=== PATIENT | male | born 1970 | race Caucasian/White ===

== ENCOUNTER 2021-04-22 05:35 | Outpatient (CLI) | payer BC ==
[~2021-04-22] VITALS: Ht 195.6 cm; Wt 104.5 kg
== END 2021-04-22 10:01 | disposition home or self-care (01) ==
LOC: PREOP 05:35
PROVIDERS: ATTEND Internal Medicine
DX: Z01.818 Encounter for other preprocedural examination (principal)

== ENCOUNTER 2021-05-14 09:06 | Day surgery (SDC) | payer BC ==
--- NOTE | 2021-04-13 06:26 | HISTORY AND PHYSICAL ---
DATE OF SERVICE: COLONOSCOPY HISTORY AND PHYSICAL HISTORY OF PRESENT ILLNESS: The patient is a 50-year-old white male, who was seen in the office for yearly wellness evaluation. He has a history of hypertension, obstructive sleep apnea, on CPAP therapy. He is being set up for screening colonoscopy. He is deemed to be of average risk as he is not aware of any family history for colon cancer or GI tract malignancy. He has had no bright red blood per rectum, abdominal pain or change in bowel habit. After discussing his blood work, which revealed that his cholesterol was higher than last year. He notes that he has not been nearly as active. He states he has been feeling well otherwise. No difficulty with the job requirements as [employer] in the [employer]. He has received his first COVID vaccination and had no difficulty. PAST SURGICAL HISTORY: Noncontributory. SOCIAL HISTORY: He works for the [email or web address]. No past smoking history and rare small volume alcohol intake. FAMILY HISTORY: Father of complications of heart disease in his early 70s for stent placement at the age of 58. Has one brother living and well, 52 years of age. Mother of a rare blood disorder in her 30s. PHYSICAL EXAMINATION: GENERAL: Reveals a white male, appeared to be in no acute distress. VITAL SIGNS: Weight 232 pounds, but he was weighed with handcuffs gun which she reports weighs probably about 5 pounds, blood pressure 120/70. HEENT: Unremarkable. CHEST: Clear. CARDIOVASCULAR: Regular rate and rhythm without murmur, S3 or S4. ABDOMEN: Soft, supple without mass, organomegaly or tenderness. EXTREMITIES: Reveal no cyanosis, clubbing or edema. SKIN: Evaluation reveals no suspicious nevi. Ear canals clear with normal TMs. ASSESSMENT AND PLAN: Stable wellness examination except with less physical activity. Cholesterol and triglyceride levels are moderately elevated. Discussed the importance of getting back to regular physical activity, which he plans on doing. Remainder of his chemistry panel was normal and PSA remains low at 0.51. We will see him back in 6 months with a repeat CMP and Lipid panel. The patient is being set up for his first screening colonoscopy, deemed to be of average risk. Prep instructions with the Suprep kit were given and questions were answered. Job ID: [id number] DocumentID: [id number] Dictated Date: 03/31/2021 16:01:59 Assurance Officer Date: 03/31/2021 16:19:37 Dictated By: ALESHA CACERES MD MTDD
[~2021-05-14] VITALS: Ht 195.6 cm; Wt 104.5 kg
[2021-05-14] MEDS ORDERED: LACTATED RINGERS 1,000 ML IV STA (09:07)
[2021-05-14] MEDS ORDERED: LACTATED RINGERS 1,000 ML IV ONE (09:12)
[2021-05-14] MEDS ORDERED: LIDOCAINE JELLY 2% 6 ML SYRINGE MM PRN (09:15)
[2021-05-14 09:20] VITALS: BP 125/82
--- NOTE | 2021-05-14 09:31 | Pre-Op Note & Conscious Sedat ---
Pre-Operative Progress Note H&P Reviewed The H&P was reviewed, patient examined and no changes noted. Date H&P Reviewed: May 14, 2021 Time H&P Reviewed: 09:31 Conscious Sedation Pre-Proced ASA Score 2 For ASA 3 and 4: Consider anesthesia and medical clearance. Also, for patients with a history of failed moderate sedation consider anesthesia. Airway Lungs Heart ASA score ASA 1: a normal healthy patient ASA 2: a patient with a mild systemic disease (mid diabetes, controlled hypertension, obesity ASA 3: a patient with a severe systemic disease that limits activity (angina, COPD, prior Myocardial infarction) ASA 4: a patient with an incapacitating disease that is a constant threat to life (CHF, renal failure) ASA 5: a moribund patient not expected to survive 24 hrs. (ruptured aneurysm) ASA 6: a declared brain- patient whose organs are being harvested. For emergent operations, add the letter E after the classification Mallampati Classification Grade 2 Sedation Plan Analgesia, Amnesia, Plan communicated to team members, Discussed options with patient/fam, Discussed risks with patient/fam The patient is an appropriate candidate to undergo the planned procedure, sedation, and anesthesia. The patient immediately re-assessed prior to indication. ALESHA CACERES MD May 14, 2021 09:31
[2021-05-14] MEDS ORDERED: MIDAZOLAM 2 MG/2 ML (VERSED) VIAL ONE (09:57)
[2021-05-14] MEDS ORDERED: PROPOFOL INJECTION 50 ML IV ONE (09:58)
[2021-05-14] MEDS ORDERED: LIDOCAINE PF 2% 5 ML (XYLOCAINE) VIAL ONE (10:19)
[2021-05-14 10:38] VITALS: BP 114/70
[2021-05-14 10:43] VITALS: BP 123/75
[2021-05-14 10:45] VITALS: BP 123/75
--- NOTE | 2021-05-14 11:06 | Anesthesia-General Post-Op ---
MAC Patient Condition Mental Status/LOC: Same as Preop Cardiovascular: Satisfactory Nausea/Vomiting: Absent Respiratory: Satisfactory Pain: Controlled Complications: Absent Post Op Complications Complications None Follow Up Care/Instructions Patient Instructions None needed. Anesthesiology Discharge Order Discharge Order Patient is doing well, no complaints, stable vital signs, no apparent adverse anesthesia problems. No complications reported per nursing. ALEXANDRA LAGUERRE CRNA May 14, 2021 11:06
[2021-05-14 11:15] VITALS: BP 111/73
[2021-05-14 11:30] VITALS: BP 111/73
--- NOTE | 2021-05-14 15:52 | OPERATIVE REPORT ---
DATE OF SERVICE: EGD SUMMARY INDICATION FOR THE PROCEDURE: Screening colonoscopy. DESCRIPTION OF PROCEDURE: The patient was placed in the left lateral decubitus position. Prior to undergoing colonoscopy, digital rectal evaluation was performed. Anal sphincter tone was normal and the perianal reflexes intact. Prostate was normal in size and anodular on digital inspection. No abnormalities were noted on digital inspection of anal canal or distal rectal vault. The colonoscope was then inserted into the rectum and under direct visualization advanced to cecum. The cecum was identified by identification of the ileocecal valve and cecal strap. Photographic documentation was obtained. Careful inspection was made as the colonoscope was withdrawn. Quality of prep was good. FINDINGS: There was no evidence for internal or external hemorrhoids and the rectum, sigmoid colon, descending colon, splenic flexure and transverse colon were unremarkable. There was a sessile 1 x 2 cm polyp with no mucosal ulceration or inflammatory change noted to gross inspection. Photograph was obtained. It was then biopsied in 2 locations and cauterized with submission for histopathology. The ascending colon was unremarkable. A 2 to 3 mm sessile polyp was noted in the cecum. It was biopsied and ablated with no blood loss. ASSESSMENT: Two sessile polyps were removed, the larger more concerning from the hepatic flexure measuring 1 x 2 cm in size. There was no subsequent blood loss with either polyp, the second one was 2 to 3 mm in size and noted in the cecum. This was an otherwise normal colonoscopy to the cecum. We will likely be advocating repeat surveillance colonoscopy in one year, but we will await histopathology reports. Job ID: [id number] DocumentID: [id number] Dictated Date: 05/14/2021 11:06:52 Securities Trader Date: 05/14/2021 15:51:24 Dictated By: ALESHA CACERES MD [facility]
== END 2021-05-14 11:33 | disposition home or self-care (01) ==
LOC: ENDO 09:06
PROVIDERS: ATTEND Internal Medicine
DX: Z12.11 Encounter for screening for malignant neoplasm of colon (principal); D12.3 Benign neoplasm of transverse colon; D12.2 Benign neoplasm of ascending colon; Z82.49 Family history of ischemic heart disease and other diseases of the circulatory system; G47.33 Obstructive sleep apnea (adult) (pediatric); Z99.89 Dependence on other enabling machines and devices

== ENCOUNTER → 2021-07-08 | Outpatient (CLI) | payer BC ==
[~2021-07-08] VITALS: Ht 195.6 cm; Wt 103.5 kg
[~2021-07-08] MED LIST: ACETAMINOPHEN 500 MG TAB (TYLENOL) PO PRN; CASIRIVIMAB/IMDEVIMAB 1,200 MG in NS (IVPB) 250 ML IV ONE; EPINEPHrine INJECTION 1 MG/ML AMP IM PRN; ONDANSETRON 4 MG/2 ML (SDV) Z0FRAN IV PRN; diphenhydrAMINE 50 MG/ML INJ (BENADRYL) IV PRN
[2021-07-08 09:11] VITALS: BP 116/64
[2021-07-08 10:37] VITALS: BP 101/62
== END ==
LOC: INFUSION 09:07
PROVIDERS: ATTEND Nurse Practitioner Family
DX: Z23 Encounter for immunization (principal); U07.1 COVID-19

== ENCOUNTER 2022-05-04 05:38 | Outpatient (CLI) | payer BC ==
[~2022-05-04] VITALS: Ht 195.6 cm; Wt 103.4 kg
[2022-05-04] MEDS ORDERED: ATOR10TA PO (08:48)
== END 2022-05-04 08:50 | disposition home or self-care (01) ==
LOC: PREOP 05:38
PROVIDERS: ATTEND Internal Medicine
DX: Z01.818 Encounter for other preprocedural examination (principal)

== ENCOUNTER 2022-05-13 07:16 | Day surgery (SDC) | payer BC ==
--- NOTE | 2022-05-03 19:39 | HISTORY AND PHYSICAL ---
DATE OF SERVICE: COLONOSCOPY HISTORY AND PHYSICAL HISTORY OF PRESENT ILLNESS: The patient is a 51-year-old white male seen for followup of hyperlipidemia. One year ago, he had undergone colonoscopy at which time, he had a 1 x 2 cm serrated adenoma removed via cautery from the hepatic flexure. He also had a tubular adenoma removed from the cecum. For this reason, he is undergoing surveillance colonoscopy. He reports that he has been feeling well. He has a history of obstructive sleep apnea. He has been compliant with CPAP therapy, doing well with this. He voiced no complaints. He has been a little more active and his weight was down 4.6 pounds from 6 months ago. PHYSICAL EXAMINATION: GENERAL: Reveals a white male, appeared to be in no acute distress. VITAL SIGNS: Blood pressure 112/70, heart rate 70 and regular. CHEST: Clear. CARDIOVASCULAR: Reveals regular rate and rhythm without murmur, S3 or S4. EXTREMITIES: Reveal no cyanosis, clubbing or edema. SKIN: Reveals no suspicious nevi. REVIEW OF SYSTEMS: The patient has had no change in bowel habit, bright red blood per rectum, melena or abdominal pain. LABORATORY DATA: Blood tests were reviewed with the patient. Despite weight loss, his cholesterol was little change with an LDL of 160, HDL of 55, triglyceride level 145 and total cholesterol of 244. The remainder of his chemistry panel except for his blood sugar was normal, fasting at 101. This is, however, an improvement from 111 six months ago. ASSESSMENT AND PLAN: Hyperlipidemia. There is a family history for coronary artery disease. His father required stent placement in his early 60s. Discussed that he had a 7.5% to 10% 10-year risk for vascular event and statin therapy was recommended. After discussion of side effects and expectations with medication and goals, we will initiate Rosuvastatin 10 mg daily and have him follow up in 6 months with repeat chemistry and lipid panel as well as screening PSA and yearly wellness evaluation. The patient is also being set up for colonoscopy later this month due to history of colon polyps. See HPI. Prep instructions were given, and questions were answered. Job ID: [id number] DocumentID: [id number] Dictated Date: 04/06/2022 09:52:01 Knotter Hand Date: 04/06/2022 10:20:45 Dictated By: ALESHA CACERES MD
[~2022-05-13] VITALS: Ht 195.6 cm; Wt 103.4 kg
[~2022-05-13 07:16] MED LIST changes: -ACETAMINOPHEN 500 MG TAB (TYLENOL) PO PRN; +ATOR10TA PO; -CASIRIVIMAB/IMDEVIMAB 1,200 MG in NS (IVPB) 250 ML IV ONE; -EPINEPHrine INJECTION 1 MG/ML AMP IM PRN; -ONDANSETRON 4 MG/2 ML (SDV) Z0FRAN IV PRN; -diphenhydrAMINE 50 MG/ML INJ (BENADRYL) IV PRN
[2022-05-13] MEDS ORDERED: LACTATED RINGERS 1,000 ML IV STA (07:17)
[2022-05-13 07:29] VITALS: BP 129/78
[2022-05-13] MEDS ORDERED: MIDAZOLAM 2 MG/2 ML (VERSED) VIAL ONE (07:43)
[2022-05-13] MEDS ORDERED: PROPOFOL INJECTION 50 ML IV ONE (07:44)
--- NOTE | 2022-05-13 08:00 | Pre-Op Note & Conscious Sedat ---
Pre-Operative Progress Note H&P Reviewed The H&P was reviewed, patient examined and no changes noted. Date H&P Reviewed: May 13, 2022 Time H&P Reviewed: 08:00 Conscious Sedation Pre-Proced ASA Score 2 For ASA 3 and 4: Consider anesthesia and medical clearance. Also, for patients with a history of failed moderate sedation consider anesthesia. Airway Lungs Heart ASA score ASA 1: a normal healthy patient ASA 2: a patient with a mild systemic disease (mid diabetes, controlled hypertension, obesity ASA 3: a patient with a severe systemic disease that limits activity (angina, COPD, prior Myocardial infarction) ASA 4: a patient with an incapacitating disease that is a constant threat to life (CHF, renal failure) ASA 5: a moribund patient not expected to survive 24 hrs. (ruptured aneurysm) ASA 6: a declared brain- patient whose organs are being harvested. For emergent operations, add the letter E after the classification Mallampati Classification Grade 2 Sedation Plan Analgesia, Amnesia, Plan communicated to team members, Discussed options with patient/fam, Discussed risks with patient/fam The patient is an appropriate candidate to undergo the planned procedure, sedation, and anesthesia. The patient immediately re-assessed prior to indication. ALESHA CACERES MD May 13, 2022 08:00
[2022-05-13 08:45] VITALS: BP 117/61
[2022-05-13 08:50] VITALS: BP 118/71
[2022-05-13 09:15] VITALS: BP 129/73
--- NOTE | 2022-05-13 10:34 | Anesthesia-General Post-Op ---
MAC Patient Condition Mental Status/LOC: Same as Preop Cardiovascular: Satisfactory Nausea/Vomiting: Absent Respiratory: Satisfactory Pain: Controlled Complications: Absent Post Op Complications Complications None Follow Up Care/Instructions Patient Instructions None needed. Anesthesiology Discharge Order Discharge Order Patient is doing well, no complaints, stable vital signs, no apparent adverse anesthesia problems. No complications reported per nursing. YESICA HAMILTON CRNA May 13, 2022 10:34
--- NOTE | 2022-05-13 15:48 | OPERATIVE REPORT ---
DATE OF SERVICE: COLONOSCOPY SUMMARY INDICATION FOR THE PROCEDURE: Surveillance, history of colon polyps. DESCRIPTION OF PROCEDURE: The patient was placed in the left lateral decubitus position. Prior to undergoing colonoscopy, digital rectal evaluation was performed. Anal sphincter tone was normal and the perianal reflexes intact. Prostate is unremarkable to digital inspection. No abnormalities were noted on digital inspection of anal canal or distal rectal vault. The colonoscope was then inserted into the rectum and under direct visualization advanced to cecum. The cecum was identified by identification of the ileocecal valve and cecal strap. Photographic documentation was obtained. Quality of prep was fair. A small portion of the cecum was not visualized as well as ascending colon due to retained stool. Elsewhere, visualization was good. FINDINGS: There was no evidence for internal or external hemorrhoids and the rectum was unremarkable. Present in the mid sigmoid colon was a diminutive 3 mm sessile polyp was photographed and biopsied and ablated with no subsequent blood loss. No other sigmoid colonic abnormalities were appreciated. The descending colon, splenic flexure, transverse colon and hepatic flexure, ascending colon, and cecum were unremarkable. There is no evidence for recurrence of previous serrated adenoma at the hepatic flexure. ASSESSMENT: One diminutive polyp was removed from the mid sigmoid colon with an otherwise unremarkable colonoscopy to the cecum. As long as there are no surprise on histopathology report, would advocate repeat surveillance colonoscopy in 5 years. Job ID: [id number] DocumentID: [id number] Dictated Date: 05/13/2022 08:44:55 Complaint Evaluation Officer Date: 05/13/2022 15:47:38 Dictated By: ALESHA CACERES MD
== END 2022-05-13 09:25 | disposition home or self-care (01) ==
LOC: ENDO 07:16
PROVIDERS: ATTEND Internal Medicine
DX: Z12.11 Encounter for screening for malignant neoplasm of colon (principal); K63.5 Polyp of colon; E78.5 Hyperlipidemia, unspecified; G47.33 Obstructive sleep apnea (adult) (pediatric); Z82.49 Family history of ischemic heart disease and other diseases of the circulatory system; Z79.899 Other long term (current) drug therapy
CPT/HCPCS: 88305

== ENCOUNTER → 2022-06-09 | Outpatient (CLI) | payer BC ==
[~2022-06-09] VITALS: Ht 195.6 cm; Wt 104.5 kg
[~2022-06-09] MED LIST changes: +ROSU10TA28 PO
== END ==
LOC: PREOP 05:38
PROVIDERS: ATTEND Surgery
DX: Z01.818 Encounter for other preprocedural examination (principal); M67.40 Ganglion, unspecified site

== ENCOUNTER 2022-06-16 08:07 | Day surgery (SDC) | payer BC ==
--- NOTE | 2022-06-09 09:23 | HISTORY AND PHYSICAL ---
DATE OF SERVICE: ATTENDING PRIMARY CARE PHYSICIAN: Dr. Noah Moran. HISTORY OF PRESENT ILLNESS: The patient is a 51-year-old male with a symptomatic lesion of the dorsal surface of the left wrist, which has been around for 10 years; however, this has grown larger in size and become painful. Since this has happened, this has interfered with his ability to dorsiflex the wrist and impedes his ability to exercise. Upon examination, there is a cystic-type lesion. Upon plantar flexion of the wrist, which appears to be consistent with a symptomatic ganglion cyst. PAST MEDICAL HISTORY: Hypercholesterolemia. PAST SURGICAL HISTORY: Right foot bunionectomy 2003. ALLERGIES: NO KNOWN DRUG ALLERGIES. MEDICATIONS: Antihypercholesterolemic. SOCIAL HISTORY: Negative smoke. Rare alcohol. FAMILY HISTORY: Father, hypertension, diabetes. VITAL SIGNS: Blood pressure 142/84, current weight 228.2 pounds at 6 feet 5 inches. REVIEW OF SYSTEMS: Well-nourished male in no acute distress. He is not experiencing any shortness of breath or difficulty breathing. No chest pain, palpitations, diaphoresis. No nausea or vomiting. No diarrhea or constipation. No fever or chills. No recent inadvertent weight loss. All other review of systems negative. PHYSICAL EXAMINATION: CHEST: Clear. Good breath sounds bilaterally. HEART: Regular, no murmurs. EXTREMITIES: No lower extremity edema, negative Homans sign. HEENT: No scleral icterus. NECK: No cervical lymphadenopathy. ABDOMEN: Soft, nontender, nondistended. SKIN: Along the dorsal aspect of the left wrist upon plantar flexion is a firm, well-circumscribed lesion approximately 1.5 cm in size consistent with benign. He has symptomatic ganglion cyst. ASSESSMENT AND PLAN: A 51-year-old male with a symptomatic left dorsal ganglion cyst. The natural history of these type of cysts were explained to the patient as well as the risk for increase in size and pain and he is understanding of this and would like to proceed with excision of the ganglion cyst, which we will schedule. Job ID: [id number] DocumentID: [id number] Dictated Date: 05/31/2022 15:56:03 Certified Diabetes Educator Date: 05/31/2022 16:36:41 Dictated By: STEVIE JEAN BAPTISTE MD
[~2022-06-16] VITALS: Ht 195.6 cm; Wt 104.5 kg
[2022-06-16] MEDS ORDERED: LACTATED RINGERS 1,000 ML IV PRN (09:00)
[2022-06-16] MEDS ORDERED: ceFAZolin 2 GM IV Premixed 50 ML IV ONE (09:00)
[2022-06-16 09:20] VITALS: BP 130/79
--- NOTE | 2022-06-16 10:01 | Progress Note-Pre Operative ---
Pre-Operative Progress Note Date H&P Reviewed: Jun 16, 2022 Time H&P Reviewed: 09:55 History & Physical: H&P Reviewed, No changes noted Pre-Operative Diagnosis: Left ganglion cyst JAKE ANDERSON SEISMIC COMPUTER Jun 16, 2022 10:01
[2022-06-16] MEDS ORDERED: HYDR-3817 PO (10:02)
--- NOTE | 2022-06-16 10:02 | Discharge Inst-Surgical ---
D/C Lap Instructions-KIDO Reconcile Patient Problems Problems Reviewed?: Yes New, Converted, or Re-Newed RX: RX on Chart Follow Up Appt in 2 weeks Activity as tolerated No driving for 24 hours No driving while on pain medications Incentive Spirometry use every 2 hours while awake Regular Diet Symptoms to Report: Fever over 101 degree F, Nausea/Vomiting Infection Signs and Symptoms to report: Increased redness, Foul odor of wound, Increased drainage Bathing instructions: May shower Operative Area Clean/Dry; Keep incision clean/dry If any problems/questions: Contact your physician or go to Emergency Room JAKE ANDERSON APRN Jun 16, 2022 10:02
[2022-06-16] MEDS ORDERED: ACETAMINOPHEN 325 MG TABLET PO PRN (10:15)
[2022-06-16] MEDS ORDERED: morphine INJ 10 MG/ML 1ML (SYR OR VIAL) IVP PRN (10:15)
[2022-06-16] MEDS ORDERED: ONDANSETRON 4 MG/2 ML (SDV) Z0FRAN IVP PRN (10:15)
[2022-06-16] MEDS ORDERED: HYDROcodone/APAP 5 MG/325 MG (LORTAB) TAB PO ONE (10:15)
[2022-06-16] MEDS ORDERED: LIDOCAINE/EPI 2% 1:200,00 (XYLOCAINE) 20 ML VIAL ONE (10:30)
[2022-06-16] MEDS ORDERED: MIDAZOLAM 2 MG/2 ML (VERSED) VIAL ONE (10:44)
[2022-06-16] MEDS ORDERED: PROPOFOL INJECTION 50 ML IV ONE (10:44)
[2022-06-16 12:04] VITALS: BP 142/76
--- NOTE | 2022-06-16 12:09 | Anesthesia-General Post-Op ---
MAC Patient Condition Mental Status/LOC: Same as Preop Cardiovascular: Satisfactory Nausea/Vomiting: Absent Respiratory: Satisfactory Pain: Controlled Complications: Absent Post Op Complications Complications None Follow Up Care/Instructions Patient Instructions None needed. Anesthesiology Discharge Order Discharge Order Patient is doing well, no complaints, stable vital signs, no apparent adverse anesthesia problems. No complications reported per nursing. CAT CARRINGTON CRNA Jun 16, 2022 12:09
[2022-06-16 12:10] VITALS: BP 152/63
[2022-06-16 12:20] VITALS: BP 161/63
[2022-06-16 12:25] VITALS: BP_SYST 149; BP_SYST 161; BP_DIAS 63; BP_DIAS 81
--- NOTE | 2022-06-16 12:39 | Progress Note-Post Operative ---
Post-Operative Progess Note Surgeon (s)/Pathology Collector (s) Surgeon STEVIE JEAN BAPTISTE MD Pathology Collector: alberto sharma CASH OFFICE WORKER Pre-Operative Diagnosis Left ganglion cyst Post-Operative Diagnosis same Procedure & Operative Findings Date of Procedure 06/16/22 Procedure Performed/Findings excision left wrist ganglion cyst Anesthesia Type mac with local Estimated Blood Loss Estimated blood loss (mL): minimal Specimens/Packing Specimens Removed ganglion cyst STEVIE JEAN BAPTISTE MD Jun 16, 2022 12:39
[2022-06-16 12:45] VITALS: BP 148/82
--- NOTE | 2022-06-16 21:13 | OPERATIVE REPORT ---
DATE OF SERVICE: 06/16/2022 ATTENDING PRIMARY CARE PHYSICIAN: Noah Moran MD PREOPERATIVE DIAGNOSIS: Symptomatic left dorsal wrist ganglion cyst. POSTOPERATIVE DIAGNOSIS: Symptomatic left dorsal wrist ganglion cyst. PROCEDURE: Excision of left dorsal ganglion cyst. SURGEON: Debbie Jean Baptiste MD. INDUSTRIAL SPRAYPAINTER: Cliff Gray APRN. ANESTHESIA: Monitored anesthesia care with local. ESTIMATED BLOOD LOSS: Minimal. FINDINGS: Ganglion cyst, left dorsal wrist at the radial head and carpal bone junction. DISPOSITION: The patient tolerated the procedure well. INDICATIONS: The patient is a 51-year-old male who has had a symptomatic lesion of the dorsal surface of the left wrist for about 10 years; however, this has grown significantly larger in size at times, especially upon exertion. Since this has happened this has interfered with his ability to dorsiflex the wrist and sometimes impeding his ability to exercise. On examination, there is a cystic- type lesion and upon plantar flexion of the wrist, there was a symptomatic ganglion cyst. DESCRIPTION OF PROCEDURE: The patient was brought to the operating room, laid supine on the table. After adequate IV pain and sedative medications and monitored anesthesia care, the left hand and the extremity was prepped and draped in standard surgical fashion and sterile tourniquet was placed. The area was then marked off along the glabellar lines. This area was then anesthetized using 0.5% Marcaine with epinephrine with visualization of good hemostasis. A horizontal skin incision was then made using a 15 blade. The subcutaneous tissue was then dissected using electrocautery. The superficial extensor tendons were identified and bluntly dissected and retracted laterally visualizing the cyst, which was then dissected using tenotomy scissors and electrocautery with visualization of good hemostasis. A 0 chromic loop suture was then placed at the base of the cyst and tightened. The cyst was then excised under direct visualization using electrocautery. The tourniquet was then released with visualization of good hemostasis. The fascia was then reapproximated using 3-0 Vicryl interrupted sutures and the skin was closed using 4-0 Monocryl running subcuticular suture. Wound was then cleaned and covered with Dermabond. Wound was then cleaned and covered with Lucy wrap, followed by 2-inch Scott wrap followed by a wrist splint. The patient tolerated the procedure well. We will start IV and oral pain medication once he is tolerating clears, has good pain control, he may be discharged home and he will be instructed to keep the area clean and dry and do all of his activities of normal living; however, to do no heavy lifting or exertion for the next two weeks. Job ID: [id number] DocumentID: [id number] Dictated Date: 06/16/2022 11:58:17 Flight Control Manager Date: 06/16/2022 21:13:19 Dictated By: DEBBIE JEAN BAPTISTE MD MTDD
== END 2022-06-16 12:45 ==
LOC: SDC 08:07
PROVIDERS: ATTEND Surgery
DX: M67.432 Ganglion, left wrist (principal)
CPT/HCPCS: 87081; 88304

== ENCOUNTER 2023-09-26 05:29 | Outpatient (CLI) | payer BC ==
[~2023-09-26] VITALS: Ht 195.6 cm; Wt 106.8 kg
[~2023-09-26 05:29] MED LIST changes: +HYDR-3817 PO
[2023-10-02] MEDS ORDERED: CEPH500C PO (10:51)
[2023-10-02] MEDS ORDERED: ACHD5005 PO (10:51)
== END 2023-09-26 13:13 | disposition home or self-care (01) ==
LOC: PREOP 05:29
PROVIDERS: ATTEND Podiatrist Foot & Ankle Surgery
DX: Z01.818 Encounter for other preprocedural examination (principal)

== ENCOUNTER 2023-10-02 07:44 | Day surgery (SDC) | payer BC ==
--- NOTE | 2023-09-23 17:16 | HISTORY AND PHYSICAL ---
DATE OF SERVICE: 10/02/2023 FOOT SURGERY PREOPERATIVE HISTORY AND PHYSICAL HISTORY OF PRESENT ILLNESS: The patient is a 52-year-old white male scheduled for corrective surgery for left hallux valgus later this month by Dr. Le. He has no known past history of coronary artery or pulmonary disease. He does have history of well controlled sleep apnea, on home CPAP and hyperlipidemia, on statin therapy in the form of rosuvastatin 20 mg daily. He recently had inflammatory condition involving the left knee, it actually appears to be the suprapatellar bursa. There was no associated trauma. He was out on a fishing trip. He was given some prednisone as well as antibiotic therapy. He had a flare up when he was not on either prednisone or antibiotic therapy shortly after he got home. He did go to urgent care on 08/27/2023 where they aspirated, but appears to be the suprapatellar bursa. Culture was negative for infection. They did not do cell count nor was it sent for crystals. His uric acid at that time was 4.1. However, this was during acute attack. His white count was normal without left shift at 7.7 thousand and no other CBC abnormalities were noted. His ALT was mildly elevated at 51, compatible with fatty liver. AST was normal with no significant alcohol exposure. 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 He has had no night sweats, chills or fever. PHYSICAL EXAMINATION: GENERAL: Reveals a white male, appeared to be in no acute distress. VITAL SIGNS: Blood pressure 110/66, heart rate 70 and regular. CHEST: Clear. CARDIOVASCULAR: Reveals regular rate and rhythm without murmur, S3, or S4. EXTREMITIES: Reveal no cyanosis, clubbing or edema. He still has a little bit of violaceous erythema over the left suprapatellar bursa, but there is minimal if any swelling. There is still slight amount of warmth. Extremities reveal no cyanosis, clubbing or edema. ASSESSMENT AND PLAN: Suspect acute inflammation of the left suprapatellar bursa is improved. We will have him continue with indomethacin. Suspect possible gout. This is to be stopped a week before his surgery or sooner as long as his symptoms continue to improve. There does not appear to be evidence for ongoing infection at this time. There is no contraindications to proceeding with planned corrective surgery for left hallux valgus. Job ID: [id number] DocumentID: [id number] Dictated Date: 09/07/2023 16:48:47 Boarding Kennel Or Cattery Operator Date: 09/07/2023 17:18:00 Dictated By: ALESHA CACERES MD [facility]
[~2023-10-02] VITALS: Ht 195.6 cm; Wt 106.8 kg
[2023-10-02] VITALS (10 sets, daily range): BP systolic 101–130; BP diastolic 60–85
[2023-10-02] MEDS ORDERED: ceFAZolin INJECTION 1,000 MG in NS (IVPB) 50 ML 50 ML IV ONE (08:15)
[2023-10-02] MEDS ORDERED: LACTATED RINGERS 1,000 ML 1,000 ML IV PRN (08:15)
[2023-10-02] MEDS ORDERED: LIDOCAINE 1% INJ 20 ML VIAL ONE (08:40)
[2023-10-02] MEDS ORDERED: BUPIVACAINE 0.5% 30 ML VIAL ONE (08:40)
--- NOTE | 2023-10-02 08:43 | Progress Note-Pre Operative ---
Pre-Operative Progress Note Date of Available H&P: Oct 02, 2023 Date H&P Reviewed: Oct 02, 2023 Time H&P Reviewed: 08:42 Pre-Operative Diagnosis: Hallux Valgus, Hypertrophic 2nd metatarsal, Neuroma 2nd Interspace, left fo MARIANNA LARKIN DPM Oct 02, 2023 08:43
[2023-10-02] MEDS ORDERED: MIDAZOLAM INJ 2 MG/2 ML VIAL ONE (08:51)
[2023-10-02] MEDS ORDERED: fentaNYL INJECTION 100 MCG/2 ML VIAL ONE (08:51)
[2023-10-02] MEDS ORDERED: dexAMETHasone INJ 10 MG/ML 1 ML VIAL ONE ×2 (10:10→10:37)
[2023-10-02] MEDS ORDERED: dexAMETHasone INJ 10 MG/ML 1 ML VIAL INJ ONE (10:14)
[2023-10-02] MEDS ORDERED: BUPIVACAINE 0.5% 30 ML VIAL INJ ONE (10:15)
[2023-10-02] MEDS ORDERED: LIDOCAINE 1% INJ 20 ML VIAL INJ ONE (10:16)
[2023-10-02] MEDS ORDERED: ONDANSETRON INJECTION 4 MG/2 ML (SDV) ONE (10:37)
[2023-10-02] MEDS ORDERED: proPOfol INJECTION 200 MG/20 ML VIAL IV ONE (10:37)
[2023-10-02] MEDS ORDERED: SEVOFLURANE (ULTANE) 15 ML INHAL SOLN ONE (10:38)
--- NOTE | 2023-10-02 10:43 | Progress Note-Post Operative ---
Post-Operative Progess Note Surgeon (s)/Skip Miner (s) Surgeon MARIANNA LARKIN DPM Skip Miner: none Pre-Operative Diagnosis Hallux Valgus, Hypertrophic 2nd metatarsal, Neuroma 2nd Interspace, left fo Post-Operative Diagnosis same Procedure & Operative Findings Date of Procedure 10/02/23 Procedure Performed/Findings Merlin-Cullen bunionectomy, 2nd metatarsal osteotomy, neuroma 2nd interspace decompression, left foot Anesthesia Type general Estimated Blood Loss Estimated blood loss (mL): minimal Specimens/Packing Specimens Removed none MARIANNA LARKIN DPM Oct 02, 2023 10:43
[2023-10-02] MEDS ORDERED: CEPH500C PO (10:51)
[2023-10-02] MEDS ORDERED: ACHD5005 PO (10:51)
--- NOTE | 2023-10-02 10:53 | Anesthesia-General Post-Op ---
General Patient Condition Mental Status/LOC: Same as Preop Cardiovascular: Satisfactory Nausea/Vomiting: Absent Respiratory: Satisfactory Pain: Controlled Complications: Absent Post Op Complications Complications None Follow Up Care/Instructions Patient Instructions None needed. Anesthesia/Patient Condition Patient Condition Patient is doing well, no complaints, stable vital signs, no apparent adverse anesthesia problems. No complications reported per nursing. ALEXANDRA LAGUERRE CRNA Oct 02, 2023 10:53
[2023-10-02] MEDS ORDERED: morphine INJ 10 MG/ML 1ML (SYR OR VIAL) IVP ONE (11:00)
[2023-10-02] MEDS ORDERED: HYDROcodone/ACETAMINOPHEN 5 MG/325 MG TABLET PO PRN (11:00)
[2023-10-02] MEDS ORDERED: KETOROLAC INJ 30 MG/ML VIAL IVP ONE (11:00)
[2023-10-02] MEDS ORDERED: LACTATED RINGERS 1,000 ML 1,000 ML IV SCH (11:00)
[2023-10-02] MEDS ORDERED: ONDANSETRON INJECTION 4 MG/2 ML (SDV) IVP PRN (11:00)
--- NOTE | 2023-10-02 16:04 | Diagnostic Imaging Report ---
INDICATION: Postop foot. COMPARISON: None. FINDINGS: Two radiographic views of the left foot were obtained and show postsurgical changes of recent hallux valgus repair. Osteotomy defect of the first proximal phalanx and metatarsal are noted. Orthopedic screws and nails are present. No unexpected radiopaque foreign bodies are seen. Joint spaces are maintained. IMPRESSION: 1. Expected postoperative changes of the left foot. No unexpected radiopaque foreign bodies. Dictated by: Dictated on workstation # [id number]
--- NOTE | 2023-10-02 20:06 | OPERATIVE REPORT ---
DATE OF SERVICE: 10/02/2023 SURGEON: Bita Le DPM. PREOPERATIVE DIAGNOSES: 1. Hallux abductovalgus, metatarsal primus varus, left. 2. Hypertrophic second metatarsal head, left. 3. Neuroma, second intermetatarsal space, left foot. POSTOPERATIVE DIAGNOSES: 1. Hallux abductovalgus, metatarsal primus varus, left. 2. Hypertrophic second metatarsal head, left. 3. Neuroma, second intermetatarsal space, left foot. PROCEDURE: 1. Modified Merlin-Cullen bunionectomy, left. 2. Second metatarsal osteotomy, left. 3. Neuroma decompression, left second intermetatarsal space. WOUND CLASS: Clean. ANESTHESIA: General. HEMOSTASIS: Pneumatic thigh tourniquet at 250 mmHg. INDICATIONS: This 52-year-old male presents complaining of a painful left foot. Conservative therapy is met with unsatisfactory results and the patient is agreeable to surgical intervention after risks and complications were discussed at length. No guarantees were extended to the patient and he is willing to proceed. DESCRIPTION OF PROCEDURE: The patient was brought back to the operating table, placed in secure supine position. Appropriate timeout was performed. General anesthetic was then induced. Pneumatic thigh tourniquet was placed over the left lower extremity over several layers of padding. The left foot was then anesthetized utilizing local anesthetic of 1:1 mixture of 1% Xylocaine, 0.5% Marcaine injected in a Gasca block and a block to the second ray left foot utilizing a total of 19 mL. Left foot was then prepped and draped in normal sterile manner. The left foot was then elevated and allowed to exsanguinate after which the tourniquet was inflated to 250 mmHg. Attention was then directed to the dorsal aspect of the left first metatarsophalangeal joint where a 6 cm longitudinal linear incision was created. The incision was deepened in the same plane with great care to identify and retract all vital neurovascular structures. The incision was deepened down to the capsular tissue where a longitudinal capsulotomy was performed. With the capsular tissue retracted, there is a hypertrophic dorsal eminence of the first metatarsal head as well as a medial eminence to the first metatarsal head, both of which were resected with a power sagittal saw and further contoured and smoothed with a power natalie. Next, blunt dissection was carried out into the first intermetatarsal space where the lateral capsulorrhaphy was performed as well as a release of the conjoined tendon of the adductor hallucis. The fibular sesamoidal ligament was also released. Attention was then redirected to the medial aspect of the first metatarsal head and surgical neck area where a Chevron type osteotomy was performed. The capital fragment was translocated laterally and fixated in its corrected position utilizing a 0.062 threaded K-wire from dorsal proximal to plantar distal across the osteotomy. Excellent bony apposition and fixation was appreciated at this time. The K-wire was cut flush with the dorsal aspect of the first metatarsal. The head of the first metatarsal was further contoured and smoothed with a power natalie. Attention was then directed to the lateral deviation of the hallux. A subperiosteal dissection was carried out to the diaphysis of the proximal phalanx of the left hallux. A wedge of bone was resected with the base, medial and lateral cortices held intact. Once the wedge of bone was resected, the gap was closed, noting good reduction of the angulation of the left hallux. Two fighter pilot holes were created at the dorsal medial aspect of the osteotomy after which a 28-gauge monofilament wire was passed through this fighter pilot hole securing the osteotomy in a closed position. Excellent bony apposition was appreciated at this time. The wound was flushed with copious amounts of normal saline. Closure was performed in layers. Deep closure was performed with 3-0 Vicryl, superficial with 4-0 Vicryl, skin closure with 4-0 V-Loc in a subcuticular type stitch with Steri-Strips. Attention was then directed to the dorsal aspect of the left second ray where a 4 cm longitudinal linear incision was created from the surgical neck of the second metatarsal to the proximal interphalangeal joint area of the toe. The incision was deepened in the same plane with great care to identify and retract all vital neurovascular structures. The incision was deepened down to the extensor tendon where Z-slide lengthening was performed overlying the proximal phalanx. The extensor tendon was released overlying the metatarsal head and the extensor mccall was also released in the same area. A dorsal capsulorrhaphy was performed and a release of the medial and lateral collateral ligaments. This allowed the proximal phalanx to come into good alignment. Next, a Helga type osteotomy was performed with a power sagittal saw. The cut was performed from a distal to proximal along with what would be the weightbearing surface for the patient when standing. This allowed the capital fragment to translocate proximally and was fixated in its corrected position with a 2.0 snap-off screw of 14 mm of length. Excellent bony apposition fixation was appreciated. It should be noted the capital fragment was translocated proximally and slightly medially decompressing the second intermetatarsal space. The remaining head of the second metatarsal was further contoured and smoothed with a rongeur followed by a power natalie. The wound was flushed with copious amounts of normal saline. Excellent range of motion was appreciated at the left second metatarsophalangeal joint without any crepitation. Attention was then directed to the second intermetatarsal space where blunt dissection was carried out. The blunt dissection was carried out to the deep transverse intermetatarsal ligament, which was carefully elevated and incised. Inspection of the underlying soft tissue found that there was a slightly inflamed and enlarged common plantar nerve; however, I felt it was not large enough to sacrifice and to remove at this time, I anticipate that the decompression will be sufficient for relief of the patient's symptoms. A closure that was performed in layers for the second metatarsal osteotomy area. This included 3-0 Vicryl for the extensor tendon, reapproximated in a lengthened position. Subcutaneous tissue was reapproximated with 3-0 Vicryl and skin closure was performed with 4-0 V-Loc in a subcuticular type stitch. Steri-Strips were then applied. Postoperative injection consisted of 20 mL of 0.5% Marcaine injected in local infusion to the surgical sites. A postoperative injection also included 10 mg of dexamethasone into the second intermetatarsal space as well as to the lateral aspect of the first metatarsal head area. Postoperative dressing consisted of Betadine-soaked Adaptic, sterile 4 x 4, sterile Kerlix, all secured with a Coban wrap. The patient tolerated the procedure well and was transported from the operating room to the recovery area with vital signs stable and vascular status intact to all digits of the left foot. He is to be nonweightbearing for the next 4 weeks with crutches on the left lower extremity. We will see the patient back again in 10 days period of time for reevaluation. During that time, he is to keep the dressing dry, clean, and intact. Job ID: [id number] DocumentID: [id number] Dictated Date: 10/02/2023 11:04:40 [employer] Operator Date: 10/02/2023 20:03:00 Dictated By: MARIYA HERNANDEZ
== END 2023-10-02 13:00 | disposition home or self-care (01) ==
LOC: SDC 07:44
PROVIDERS: ATTEND Podiatrist Foot & Ankle Surgery
DX: M20.12 Hallux valgus (acquired), left foot (principal); M89.372 Hypertrophy of bone, left ankle and foot; D36.13 Benign neoplasm of peripheral nerves and autonomic nervous system of lower limb, including hip; G47.33 Obstructive sleep apnea (adult) (pediatric); E78.5 Hyperlipidemia, unspecified; Z79.899 Other long term (current) drug therapy; Z99.81 Dependence on supplemental oxygen
CPT/HCPCS: 28299; 28308; 64704; 73620; 87081; C1713 ×2